=== PATIENT | female | born 1965 | race Caucasian/White ===

== ENCOUNTER 2023-09-28 23:46 | Day surgery (SDC) | payer BC, SELFPAY ==
[2023-09-28] VITALS (10 sets, daily range): BP systolic 137–191; BP diastolic 79–102
--- NOTE | 2023-09-28 15:45 | ED.GENMED ---
History of Present Illness
General
Chief Complaint: Chest Pain
Time Seen by Provider: 09/28/23 15:40
Travel History
Have you had any contact with someone who has COVID-19?: No
Do you have any symptoms of coronavirus? Fever > 100 degrees, chills, cough, shortness of breath, sore throat, loss of taste or smell, muscle aches, or headache?: No
History of Present Illness
History of Present Illness:
58-year-old female with history of hypothyroidism presents the emergency department complaining of severe onset acute epigastric and chest pain. States that she is never experienced pain as severe as this, radiates through to the thoracic back.
Pain is constant, noncolicky. Is been ongoing for the past 15 to 30 minutes. Denies any p.o. intake today. No fever, chills, sweats, vomiting, or diarrhea. No history of intra-abdominal surgery other than .
Past History
Past History
ED Past Medical History: Hypothyroidism and Other (Seasonal allergies)
ED Past Surgical History: Negative Cardiac
Social History
Tobacco: Non-smoker
Alcohol: Occasional
Drug: None
Personal:
Living: with family
Employment: Employed
Family History
Family History: Other (Noncontributory)
Review of Systems
Review of Systems
Allergies reviewed?: Yes
All Other Systems: ROS reviewed and negative except as documented in HPI and ROS
Phy Exam
Physical Exam
Physical Exam:
GEN: Screaming, writhing in pain
Eyes: PERRLA, EOMs intact, no scleral icterus
HENT: NCAT, oral mucosa moist
Lungs: CTAB, no wheezes, rales, rhonchi, normal chest wall excursion
Cardiac: Mildly tachycardic, regular
Abdomen: Soft, minimal reproducible epigastric tenderness, no rigidity or peritoneal signs
Neuro: AO x 3
MSK: No gross deformity or ecchymosis. No edema. No digital clubbing
Skin: No rashes, petechiae. Normal color, no pallor or jaundice.
Psych: Anxious, difficult to redirect
Scores
Heart Score for Chest Pain Patients
STEMI patient?: Not applicable
Course
Orders/Labs/Results
Orders:
Orders
09/28/23 15:27
Electrocardiogram (*1) Urgent
Reason for Study: Chest Pain
EKG- Treatment ONCE
09/28/23 15:34
Complete Blood Count/With Diff Urgent
Comprehensive Metabolic Panel Urgent
Lipase Urgent
Comment: ADD ON'
Troponin I Urgent
09/28/23 15:44
CR Chest Portable - 1 View Urgent
Comment:
Reason For Exam: chst pain
Reason Study Needs to be Portable: Other
09/28/23 15:46
Fentanyl Citrate/Pf [Sublimaze] 75 mcg IV NOW STA
09/28/23 15:47
D-Dimer Urgent
09/28/23 16:12
Add On- LAB Urgent
Tests Added?: lipase
09/28/23 16:32
HYDROmorphone [Dilaudid] 0.25 mg IV NOW STA
09/28/23 17:02
CT Abd/Pel (IV only)-DH only Urgent
Comment:
Reason For Exam: epigastric pain
09/28/23 19:07
Electrocardiogram (*1) Urgent
Reason for Study: Chest Pain
EKG- Treatment ONCE
Fentanyl Citrate/Pf [Sublimaze] 50 mcg IV NOW STA
09/28/23 19:21
Troponin I Urgent
09/28/23 20:53
US Abdomen Limited Urgent
Comment: RUQ/biliary only
Reason For Exam: biliary colic
09/28/23 22:32
0.9% Sodium Chloride 1000 ml [Nss] 1,000 ml IV BOLUS
Piperacillin/Tazo 3.375 Gram [Zosyn] 3.375 gram in 50 ml IV NOW
Abnormal Lab Results
09/28/23
15:34
BUN 18 H mg/dl
(7-17)
AST 50 H U/L
(14-36)
Alkaline Phosphatase 142 H U/L
(38-126)
09/28/23 15:34
09/28/23 15:34
Vital Signs
Initial and Last Documented VS:
Initial Vital Signs
Temp Pulse Resp BP Pulse Ox
97.4 F 79 16 191/96 100
09/28/23 15:36 09/28/23 15:36 09/28/23 15:36 09/28/23 15:36 09/28/23 15:36
Last Documented Vital Signs
Temp Pulse Resp BP Pulse Ox
97.4 F 75 14 154/87 95
09/28/23 15:36 09/28/23 22:16 09/28/23 22:16 09/28/23 22:16 09/28/23 22:16
MDM/Problems Addressed
MDM/Problems Addressed:
On arrival the patient's dramatic presentation was concerning for acute coronary syndrome, pulmonary embolism, or aortic emergency. She was noted to be hypertensive however with an unremarkable neurologic exam, and symmetric radial pulses. She did
not display significant abdominal tenderness. Initial workup reveals negative troponin, normal EKG, and negative D-dimer. These labs lowered concern for potential aortic emergency as well as pulmonary embolism. She then underwent a CT scan and
repeat troponin which was again negative, repeat EKG also negative. CT revealed suggestion of acute cholecystitis. The patient was then reassessed and has similar epigastric tenderness but a negative clinical Bañuelos sign. Follow-up ultrasound
highly suspicious for acute cholecystitis. Will start IV antibiotics and admit to the general surgery service for morning evaluation
*Critical Care Note
Total Time (30-74mins, 75-104mins- exclusive of procedures): Not Applicable
ED Attending Note
-
Portions of this chart may have been created with voice recognition software.� Occasional wrong word or��sound alike� substitutions may have occurred due to the inherent limitations of voice recognition software.
Discharge Plan
Departure
Patient Disposition: Admit
Date of Disposition: 09/28/23
Time of Disposition: 22:35
Admit to: Med/Surg
Presentation/result/management discussed w/ accepting MD/DO: Hospitalist
Discharge Problem:
Acute cholecystitis
Prescriptions:
No Action
levothyroxine 100 mcg Tablet
100 mcg PO DAILY
ibuprofen 200 mg Tablet
200 mg PO ONCE PRN (Reason: mild pain)
Vtama 1 % Cream
1 applic TOPICAL HSPRN PRN (Reason: apply to B/L feet and hands)
Glucosamine Chondroitin
2 tab PO HS
Referrals:
Rock Vinson DO [Family Provider] -
Interventions
Interventions:
*Risk Screen - Suicide Last Done: 09/28/23 15:36
*General Assessment Last Done: 09/28/23 15:36
*Neglect/Abuse Screening Last Done: 09/28/23 15:36
*ED COVID-19 Vaccine History Last Done: 09/28/23 15:36
ED- Cardiac Assessment Last Done: 09/28/23 15:43
[2023-09-28 15:48] LABS: % Basophils 0.5 % (0-2); % Eosinophils 3.8 % (0-6); % Immature Granulocytes 0.5 % (0-0.5); % Monocytes 6.3 % (1.7-9.3); % Neutrophils 52.9 % (42.2-75.2); Absolute Eosinophils 0.3 10^3/uL (0-0.7); Absolute Lymphocytes 3.1 10^3/uL (1.2-3.4); Absolute Monocytes 0.6 10^3/uL (0.1-0.6); Absolute Neutrophils 4.6 10^3/uL (1.4-6.5); Hematocrit 41.8 % (37.0-47.0); Hemoglobin 14.6 g/dL (12.0-16.0); Mean Corp Hgb Conc. 34.9 g/dL (33.0-37.0); Mean Corpuscular Hgb 29.3 pg (27.0-31.0); Mean Corpuscular Volume 83.8 fL (81.0-99.0); Mean Platelet Volume 9.9 fL (7.4-10.4); Nucleated Red Blood Cells % 0 %; Platelet Count 315 10^3/uL (130-400); Red Blood Cell Count 4.99 10^6/uL (4.20-5.40); Red Cell Dist. Width 13.4 % (11.5-14.5); White Blood Cell Count 8.7 10^3/uL (4.8-10.8)
[2023-09-28] MEDS: SUBLIMAZE 75 MCG IV (15:49)
[2023-09-28 16:11] LABS: ALT (SGPT) 28 U/L (0-35); AST (SGOT) 50 U/L (14-36); Albumin 4.2 g/dl (3.5-5.0); Alkaline Phosphatase 142 U/L (38-126); Blood Urea Nitrogen 18 mg/dl (7-17); Calcium 9.4 mg/dl (8.4-10.2); Carbon Dioxide 26 mmol/L (22-30); Chloride 103 mmol/L (98-107); Glucose 97 mg/dl (70-99); Potassium 4.3 mmol/L (3.5-5.1); Sodium 139 mmol/L (135-145); Total Bilirubin 0.8 mg/dl (0.2-1.3); Total Protein 7.5 g/dl (6.3-8.2); Troponin I < 0.012 ng/ml; eGFR > 60.00
[2023-09-28 16:13] LABS: D-Dimer < 0.27 ug/mlFEU (0.00-0.50)
[2023-09-28] MEDS: DILAUDID 0.25 MG IV (16:37)
[2023-09-28 16:52] LABS: Lipase 173 U/L (23-300)
[2023-09-28] MEDS: SUBLIMAZE 50 MCG IV (19:19)
[2023-09-28 19:57] LABS: Troponin I < 0.012 ng/ml
[2023-09-28] MEDS: ZOSYN 50 IV (22:54)
[2023-09-28] MEDS: NSS 1000 IV (22:55)
[2023-09-29] VITALS (11 sets, daily range): BP systolic 103–155; BP diastolic 59–91; BMI 29.4
--- NOTE | 2023-09-29 00:01 | HPS.HSE ---
Addendum entered and electronically signed by Bruce Ma MD 09/29/23 07:49:
Patient seen and examined independently.
Patient is a 58 yo F with a PMH of hypothyroidism and s/p x 3 who presented to yesterday afternoon with a severe episode of epigastric abdominal pain radiating across to her bilateral upper abdomen and into her back. Ms. Lebron states
that she was doing well prior to this episode and denies any prior attacks or issues with abdominal pain. No clear association with fatty food intake. No nausea or vomiting. No fevers or chills. She denies jaundice, pale stools, or tea colored
urine. She reports a history more consistent with constipation over the past few days. This a.m. her symptoms have resolved and she is doing well.
Gen: NAD
Abd: soft, NT/ND, negative Bañuelos's sign, non-peritoneal, prior Pfannenstiel incisions well-healed
Labs and imaging were reviewed
Patient is a 58 yo F p/w biliary colic
The natural history and pathophysiology of biliary and stone disease was discussed. Anatomy was reviewed utilizing pictorial images. Options for management including discharge and medical management with a low-fat diet with eventual outpatient
cholecystectomy versus cholecystectomy during this admission were considered and discussed. The pros and cons of both approaches was discussed. Recommend cholecystectomy, patient agrees to proceed.
Plan for a laparoscopic cholecystectomy with possible cholangiogram. The procedure itself, as well as the risks, benefits, and alternatives was discussed. Specifically, we discussed the risks of bleeding, infection, injury to surrounding
structures (bowel, bile ducts), CBD injury, need for open procedure. Typical postprocedural recovery including pain management and the 10 to 20% risk of fluctuations in GI function was discussed. All questions answered. Consent signed.
-- Laparoscopic cholecystectomy possible IOC
-- NPO, IVF
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
-- Pain control: Tylenol and IV Dilaudid PRN
Original Note:
Family Physician
-
Family Physician: Rock Vinson
Chief Complaint
-
abd pain
History of Present Illness
58-year-old female with history of hypothyroidism presents the emergency department complaining of severe onset acute epigastric and chest pain.� States that she is never experienced pain as severe as this, radiates through to the thoracic back.�
Pain happened suddenly. No relation to eating etc. Last meal was yesterday afternoon. Pain is constant, noncolicky.� Denies any p.o. intake today.� No fever, chills, sweats, vomiting, or diarrhea.� No history of intra-abdominal surgery other than
. Based on severity of symptoms and HTN pt was first worked up for cardiac reasons but all was ruled out. It was decided then to send for CT abd.
Ct Scan abd: Within the dependent portion of the gallbladder, there is a gallstone with transverse dimension of 17 mm. Slightly more posteriorly and superiorly, there is a second gallstone, with diameter of 10 mm. There is subtle stranding of the
fat adjacent to the gallbladder, and findings are suggestive of mild gallbladder wall thickening and/or pericholecystic edema. In the correct clinical setting, these findings suggest the possibility of acute cholecystitis.
OF note, pt does describe some changes in bowels over last couple months. Feels like she has to strain more and BMs have been more 'mushy' vs formed. BM every other day. Last colonoscopy normal.
Medical History
Past Medical History
Past Medical History: Reports Hypothyroidism
Past Surgical History: Reports (x3)
Social History
Tobacco: Non-smoker
Alcohol: Occasional
Drug: None
Personal:
Living: With Family
Employment: Employed
Family History
Family History: Not pertinent
Allergies / Home Medications
Allergies reflects when Allergies were last updated in [facility].
Home Medications with original date entered in [facility]
Allergy/Medication List:
Allergies
Allergy/AdvReac Type Severity Reaction Status Date / Time
latex [Latex] Allergy Itching Verified 05/27/19 21:08
Home Medications
Glucosamine Chondroitin 2 tab PO HS 09/28/23
ibuprofen 200 mg tablet 200 mg PO ONCE PRN mild pain 09/28/23
levothyroxine 100 mcg tablet 100 mcg PO DAILY 09/28/23
tapinarof 1 % topical cream (Vtama) 1 applic topical HSPRN PRN apply to B/L feet and hands 09/28/23
Review of Systems
-
History Source: Patient
A 12 point ROS was completed and negative except as noted: Yes
Constitutional: Reports No Symptoms
EENT: Reports No Symptoms
Respiratory: Reports No Symptoms
Cardiac: Reports Chest Pain
Abdomen/GI: Reports Abdominal Pain and Other (changes in bowel constancy--more mushy vs formed )over last few months))
: Reports No Symptoms
Musculoskeletal: Reports No Symptoms
Skin: Reports No Symptoms
Neurological: Reports No Symptoms
Endocrine: Reports No Symptoms
Hematologic/Lymphatic: Reports No Symptoms
Physical Exam
Vital Signs
Vital Signs
Temp Pulse Resp BP Pulse Ox
97.4 F 75 14 154/87 95
09/28/23 15:36 09/28/23 22:16 09/28/23 22:16 09/28/23 22:16 09/28/23 22:16
Physical Exam
General: Well Developed, Well Nourished, No Apparent Distress and Comfortable (pain now 2/10 vs 200/10)
HEENT: NormoCephalic, Anicteric and Moist mucous membranes
Respiratory: Clear
Cardiac: Regular Rhythm
Breast: Deferred by me
GI: Soft, Non Tender, Non Distended and Normal Bowel Sounds
Rectal: Deferred by Provider
Genito-urinary: Deferred by me
Skin: Warm
Neuro: Awake, Oriented and AO x 3
Hematologic/Lymphatic: No Lymphadenopathy
Psych: Calm
Laboratory Results
-
09/28/23 15:34
09/28/23 15:34
Laboratory Results
Total Bilirubin 0.8 mg/dl (0.2-1.3) 09/28/23 15:34
AST 50 U/L (14-36) H 09/28/23 15:34
ALT 28 U/L (0-35) 09/28/23 15:34
Alkaline Phosphatase 142 U/L (38-126) H 09/28/23 15:34
Troponin I < 0.012 ng/ml 09/28/23 19:21
Lipase 173 U/L (23-300) 09/28/23 15:34
Data Reviewed
-
CT Scan: Discussed with Physician
Ultrasound: Discussed with Physician
Lab Data: Labs Reviewed by me
Impression/Plan
-
IMPRESSION:
acute cholecystitis
PLAN:
Admit to service of Dr Ma
med/surg obs
#acute cholecystitis
-NPO x meds after midnight
-Pt wants to eat before NPO (hasn't eaten since yesterday)--> sandwich given
-IVF Nss @100
-Pain control: dilaudid , tylenol or toradol
-Cont zosyn q6
-zofran prn
#hypothyroid
-cont levothyroxine
DVT proph: scd for now given OR in am
full code
[2023-09-29] MEDS: NSS 1000 IV ×2 (00:41→09:58)
[2023-09-29] MEDS: MELATONIN 10 MG PO ×2 (00:42→21:42)
--- NOTE | 2023-09-29 01:27 | PTCARENOTE ---
Pt. coming from ED to [facility] around 0030, able to walk to room bed with steady gait. Pt. A&Ox3, in NAD, even and unlabored breathing on RA, and VSS - hypertensive but better than previous readings. Denies pain at present, stating she'd like to
sleep. Pt. oriented to room and unit policies, bed locked and in lowest position, side rails in place, call light within reach, and questions answered at time of assessment. Will continue to monitor.
[2023-09-29] MEDS: ZOSYN 50 IV ×4 (04:29→21:42)
--- NOTE | 2023-09-29 07:49 | W.SUR.PREOP ---
Pre-Operative Surgical Note
-
I have examined this patient prior to the performance of the scheduled procedure.
The patient's condition is unchanged from the time of the current History and
Physical and the patient is able to undergo the scheduled procedure.
[2023-09-29] MEDS: SYNTHROID 100 MCG PO (07:53)
[2023-09-29] MEDS: COLACE 100 MG PO ×2 (08:00→20:59)
--- NOTE | 2023-09-29 10:35 | CM ---
Reviewed the chart notes and spoke with the patient at the bedside. Patient expects to go to the OR today for a lap amy. The patient resides with her spouse in a two story home with two steps to enter. The patient reports no DME/VN/SNF in the
past. The patient confirmed here pharmacy of choice is the [facility]. CM continues to be available to patient/family and is monitoring medical plan for needs at discharge.
Plan: Discharge to home when medically stable. No needs anticipated.
[2023-09-29 10:38] LABS: % Basophils 0.6 % (0-2); % Immature Granulocytes 0.3 % (0-0.5); % Lymphocytes 31.3 % (20.5-51.1); % Monocytes 7.4 % (1.7-9.3); % Neutrophils 56.4 % (42.2-75.2); Absolute Eosinophils 0.1 10^3/uL (0-0.7); Absolute Lymphocytes 1.1 10^3/uL (1.2-3.4); Absolute Monocytes 0.3 10^3/uL (0.1-0.6); Hematocrit 38.2 % (37.0-47.0); Hemoglobin 13.1 g/dL (12.0-16.0); Mean Corp Hgb Conc. 34.3 g/dL (33.0-37.0); Mean Corpuscular Hgb 29.2 pg (27.0-31.0); Mean Corpuscular Volume 85.3 fL (81.0-99.0); Mean Platelet Volume 10.1 fL (7.4-10.4); Nucleated Red Blood Cells % 0 %; Platelet Count 237 10^3/uL (130-400); Red Blood Cell Count 4.48 10^6/uL (4.20-5.40); Red Cell Dist. Width 13.2 % (11.5-14.5); White Blood Cell Count 3.5 10^3/uL (4.8-10.8)
[2023-09-29 11:11] LABS: ALT (SGPT) 750 U/L (0-35); AST (SGOT) 740 U/L (14-36); Albumin 3.4 g/dl (3.5-5.0); Alkaline Phosphatase 213 U/L (38-126); Blood Urea Nitrogen 9 mg/dl (7-17); Calcium 7.8 mg/dl (8.4-10.2); Carbon Dioxide 29 mmol/L (22-30); Chloride 108 mmol/L (98-107); Estimated Creatinine Clearance 97 ml/min; Glucose 89 mg/dl (70-99); Potassium 4.2 mmol/L (3.5-5.1); Sodium 138 mmol/L (135-145); Total Bilirubin 1.2 mg/dl (0.2-1.3); Total Protein 6.3 g/dl (6.3-8.2); eGFR > 60.00
--- NOTE | 2023-09-29 14:56 | W.IMMPOSTOP ---
Addendum entered and electronically signed by Bruce Ma MD 09/29/23 15:06:
[facility]# [id number]
Original Note:
Surgical Immed Post Op Note
-
Primary Surgeon: Francesca
Assisting Surgeon: None
Pre-op Diagnosis: Biliary colic
Post-op Diagnosis: Biliary colic, likely passed choledocholithiasis
Procedure Performed: Laparoscopic cholecystectomy with IOC
Anesthesia Type: General
Specimen / Cultures:
1. Gallbladder
Estimated Blood Loss: 7 cc
Complications: None
Operative Findings:
1. Mild wall thickness, pressurized cystic duct, critical view of safety
2. IOC without filling defects
[2023-09-29] MEDS: ANCEF 10 IV (15:21)
[2023-09-29] MEDS: DILAUDID 0.25 MG IV ×2 (15:39→15:46)
--- NOTE | 2023-09-29 16:25 | PTCARENOTE ---
Received patient from PACU around 1610 via bed in stable condition. VS stable. Pain controlled. 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
[2023-09-29] MEDS: TYLENOL 650 MG PO (20:59)
[2023-09-29] MEDS: MYLICON 80 MG PO (21:41)
[2023-09-29] MEDS: TORADOL 10 MG IV (22:38)
[2023-09-30] MEDS: TYLENOL 650 MG PO ×3 (02:40→21:40)
[2023-09-30] MEDS: NSS 1000 IV ×2 (02:40→12:41)
[2023-09-30 03:40] VITALS: BP 121/63
[2023-09-30] MEDS: ZOSYN 50 IV ×4 (03:55→21:36)
--- NOTE | 2023-09-30 05:08 | DOWNTIME ---
There was a [employer] Client Scanning Clerk Downtime on 09/30/2023 from 0111 to 09/30/2023 at 0405. Downtime documentation of patient's care, including medication administrations, has been reconciled in the electronic record per guidelines. Refer to the
patient's paper chart under the miscellaneous tab to see printed paper medication records and downtime forms.
[2023-09-30 05:56] LABS: Hematocrit 38.4 % (37.0-47.0); Hemoglobin 13.1 g/dL (12.0-16.0); Mean Corp Hgb Conc. 34.1 g/dL (33.0-37.0); Mean Corpuscular Hgb 29.2 pg (27.0-31.0); Mean Corpuscular Volume 85.7 fL (81.0-99.0); Mean Platelet Volume 10.6 fL (7.4-10.4); Platelet Count 262 10^3/uL (130-400); Red Blood Cell Count 4.48 10^6/uL (4.20-5.40); Red Cell Dist. Width 13.4 % (11.5-14.5); White Blood Cell Count 8.1 10^3/uL (4.8-10.8)
[2023-09-30 06:43] LABS: Albumin 3.7 g/dl (3.5-5.0); Alkaline Phosphatase 222 U/L (38-126); Blood Urea Nitrogen 9 mg/dl (7-17); Calcium 8.3 mg/dl (8.4-10.2); Carbon Dioxide 26 mmol/L (22-30); Chloride 107 mmol/L (98-107); Estimated Creatinine Clearance 97 ml/min; Glucose 150 mg/dl (70-99); Potassium 4.2 mmol/L (3.5-5.1); Sodium 137 mmol/L (135-145); Total Bilirubin 0.9 mg/dl (0.2-1.3); Total Protein 6.7 g/dl (6.3-8.2); eGFR > 60.00
[2023-09-30 06:59] LABS: ALT (SGPT) 919 U/L (0-35); AST (SGOT) 695 U/L (14-36)
[2023-09-30 07:44] VITALS: BP 128/72
[2023-09-30] MEDS: TORADOL 10 MG IV ×2 (08:29→15:16)
[2023-09-30] MEDS: COLACE 100 MG PO (08:30)
[2023-09-30] MEDS: SYNTHROID 100 MCG PO (08:30)
--- NOTE | 2023-09-30 08:38 | W.PN.GS2 ---
Today's Communication / Plan
-
Monitor for improvement in pain
Possible DC home later today
Assessment / Plan
-
58F POD1 s/p lap amy with negative IOC for choledocholithiasis/biliary colic
AFVSS, ambulating,m voiding, james PO
Recurrent RUQ pain this am
No leukocytosis, Tbili improved, AST improved, ALT/ALP slightly increased
Plan:
If not for the new onset pain, would be ready for DC
Reassured the lab findings are not suspicious
Would monitor her for today to ensure pain improves, if not, recheck LFTs in the am
If pain improved, DC home later today
Subjective Data
-
Date of Service: September 30, 2023
AFVSS, did well o/n, james PO, ambulating, voiding, this am has recurrent RUQ pain that feels similar to admission
Objective Data
-
Intake and Output
09/29/23 09/30/23 10/01/23
06:59 06:59 06:59
Intake Total 240 / 240 5080 / 5080
Output Total 700 / 700
Balance 240 / 240 4380 / 4380
Intake:
Oral fluids 240 / 240 2880 / 2880
IV fluids (Total) 2000 / 1999
Norm 100 / 100
IV piggybacks 200 / 200
Output:
Urine, Voided 700 / 700
Other:
Number of approximated LARGE 2
amounts of urine
How many times incontinent 2
MODERATE amount urine
Vital Signs
Temp Pulse Resp BP Pulse Ox
98.5 F 69 19 128/72 98
09/30/23 07:44 09/30/23 07:44 09/30/23 07:44 09/30/23 07:44 09/30/23 07:44
Lab Results
09/30/23 04:52
09/30/23 04:52
Calcium 8.3 mg/dl (8.4-10.2) L 09/30/23 04:52
Total Bilirubin 0.9 mg/dl (0.2-1.3) 09/30/23 04:52
AST 695 U/L (14-36) H* 09/30/23 04:52
ALT 919 U/L (0-35) H* 09/30/23 04:52
Alkaline Phosphatase 222 U/L (38-126) H 09/30/23 04:52
Total Protein 6.7 g/dl (6.3-8.2) 09/30/23 04:52
Albumin 3.7 g/dl (3.5-5.0) 09/30/23 04:52
Physical Exam
-
Gen: NAd
bd: soft, incisions cdi, mild ttp to RUQ
[2023-09-30 11:09] VITALS: BP 145/68
--- NOTE | 2023-09-30 14:34 | CM ---
Reviewed the chart notes. Patient is POD#1 s/p lap amy. CM continues to be available to patient/family and is monitoring medical plan for needs at discharge.
Plan: Discharge to home when medically stable.
--- NOTE | 2023-09-30 14:48 | W.PN.UPDATE ---
Update Note
Progress Note Update
RUQ pain persists. She is afraid to eat lunch for fear of exacerbating the pain. VSS, exam is stable. Encouraged to try eating. Plan for additional obs tonight and recheck labs in the am.
[2023-09-30 15:32] VITALS: BP 126/75
[2023-09-30] MEDS: LOVENOX 40 MG SC (17:29)
[2023-09-30] MEDS: MYLICON 80 MG PO (17:29)
[2023-09-30] MEDS: MIRALAX 17 GRAMS PO (20:22)
[2023-09-30] MEDS: ROXICODONE 5 MG PO (20:22)
--- NOTE | 2023-09-30 20:30 | PTCARENOTE ---
Pt c/o pain to gen abd, medicated w PRN pain med. Left dinner tray in room in case pt would like to eat later. Pt tearful, stating she's frustrated and just wants to go home but RUQ pain is too bad. Will reassess effectiveness of PRN pain med.
--- NOTE | 2023-09-30 22:53 | PTCARENOTE ---
Pt reported pain subsided a lot, however, slowly after taking PRN pain meds. Pt was able to consume 100% of her dinner entree. Assessment ongoing.
[2023-09-30 23:10] VITALS: BP 117/65
[2023-09-30] MEDS: MELATONIN 10 MG PO (23:15)
[2023-09-30] MEDS: NSS IV (23:31)
[2023-10-01] MEDS: TORADOL 10 MG IV ×2 (02:30→08:54)
[2023-10-01] MEDS: ZOSYN 50 IV ×2 (03:57→09:04)
[2023-10-01] MEDS: SYNTHROID 100 MCG PO (06:15)
[2023-10-01 07:35] VITALS: BP 160/87
[2023-10-01] MEDS: FLUSH (NSS) 2 FLUSH IV (08:57)
[2023-10-01 09:26] LABS: Hematocrit 34.8 % (37.0-47.0); Hemoglobin 12.1 g/dL (12.0-16.0); Mean Corp Hgb Conc. 34.8 g/dL (33.0-37.0); Mean Corpuscular Hgb 29.4 pg (27.0-31.0); Mean Corpuscular Volume 84.7 fL (81.0-99.0); Mean Platelet Volume 10.4 fL (7.4-10.4); Platelet Count 236 10^3/uL (130-400); Red Blood Cell Count 4.11 10^6/uL (4.20-5.40); Red Cell Dist. Width 13.9 % (11.5-14.5); White Blood Cell Count 5.9 10^3/uL (4.8-10.8)
[2023-10-01 10:51] LABS: AST (SGOT) 345 U/L (14-36); Albumin 3.4 g/dl (3.5-5.0); Alkaline Phosphatase 186 U/L (38-126); Blood Urea Nitrogen 12 mg/dl (7-17); Calcium 8.6 mg/dl (8.4-10.2); Carbon Dioxide 29 mmol/L (22-30); Chloride 105 mmol/L (98-107); Estimated Creatinine Clearance 83 ml/min; Glucose 101 mg/dl (70-99); Potassium 4.1 mmol/L (3.5-5.1); Sodium 138 mmol/L (135-145); Total Bilirubin 0.7 mg/dl (0.2-1.3); Total Protein 6.2 g/dl (6.3-8.2); eGFR > 60.00
[2023-10-01 11:03] LABS: ALT (SGPT) 748 U/L (0-35)
--- NOTE | 2023-10-01 11:03 | W.PN.GS2 ---
Today's Communication / Plan
-
`
Assessment / Plan
-
58F POD2 s/p lap amy with negative IOC for choledocholithiasis/biliary colic
AFVSS
LFTs normalizing
Plan: d/c home
Subjective Data
-
Date of Service: October 01, 2023
pt seen and examined
right sided and epigastric incisional pain
james eggs for breakfast and felt well
no nausea
Objective Data
-
Intake and Output
09/30/23 10/01/23 10/02/23
06:59 06:59 06:59
Intake Total 5080 / 5080 3530 / 3530
Output Total 700 / 700
Balance 4380 / 4380 3530 / 3530
Intake:
Oral fluids 2880 / 2880 1620 / 1620
IV fluids (Total) 2000 / 1999 1710 / 1710
Norm 100 / 100
IV piggybacks 200 / 200 200 / 200
Output:
Urine, Voided 700 / 700
Other:
Number of approximated MODERATE 4
amounts of urine
Number of approximated LARGE 2 1
amounts of urine
How many times incontinent 2
MODERATE amount urine
Vital Signs
Temp Pulse Resp BP Pulse Ox
97.7 F 57 16 160/87 96
10/01/23 07:35 10/01/23 07:35 10/01/23 07:35 10/01/23 07:35 10/01/23 07:35
Lab Results
10/01/23 09:09
10/01/23 09:09
Calcium 8.6 mg/dl (8.4-10.2) 10/01/23 09:09
Total Bilirubin 0.7 mg/dl (0.2-1.3) 10/01/23 09:09
AST 345 U/L (14-36) H 10/01/23 09:09
ALT 748 U/L (0-35) H* 10/01/23 09:09
Alkaline Phosphatase 186 U/L (38-126) H 10/01/23 09:09
Total Protein 6.2 g/dl (6.3-8.2) L 10/01/23 09:09
Albumin 3.4 g/dl (3.5-5.0) L 10/01/23 09:09
Physical Exam
-
NAD AAO x 3
ABD: soft, ND, mild incisional tenderness, incisions with glue dressing
--- NOTE | 2023-10-01 11:12 | W.DS.TRANS ---
DC Summary - Document Restorer
-
Discharge Instructions:
Discharge Diagnosis/Procedures S/p laparoscopic cholecystectomy
Diet Regular
Additional Diets If issues with bloating or diarrhea follow a low
-fat diet
Activity No strenuous activity
Additional Activity No heavy lifting (>20 lbs) or strenuous
activities for 2 weeks postoperatively
Driving Restrictions No driving if too sore or taking narcotics
Bathing Restrictions OK to Shower
Wound Care Keep incisions clean and dry. Glue will flake
off in 2 to 3 weeks. Stitches will dissolve.
Instructions:
Stand-Alone Forms:
Changes to Home Medications: No
Discharge Medications:
DC Medications w/original date entered in [facility]
Glucosamine Chondroitin 2 tab PO HS Supplement 09/28/23
ibuprofen 200 mg tablet 200 mg PO ONCE PRN mild pain 09/28/23
levothyroxine 100 mcg tablet 100 mcg PO DAILY Thyroid 09/28/23
tapinarof 1 % topical cream (Vtama) 1 applic topical HSPRN PRN apply to B/L feet and hands 09/28/23
melatonin 10 mg tablet 10 mg PO HS PRN sleep 09/29/23
tramadol 50 mg tablet 50 mg PO Q6HPRN PRN moderate to severe pain #10 tabs 10/01/23
Home Medication Changes
Pending Results: No
--- NOTE | 2023-10-01 11:28 | CM ---
Pt is post surgical recovery patient .
Spoke with patient she said she was ready for discharge.
Her Neal will drive her home today ,
Offered Vn she declined need.
PLAN Home no needs
== END 2023-10-01 12:48 | disposition home or self-care (01) ==
LOC: SDS 23:46
PROVIDERS: Emergency Medicine; Nurse Practitioner Family; Physician Assistant; Surgery; ATTENDING PHYSICIAN Surgery; EMERGENCY PHYSICIAN Emergency Medicine; FAMILY PHYSICIAN Family Medicine
DX: K80.10 Calculus of gallbladder with chronic cholecystitis without obstruction (principal); K80.50 Calculus of bile duct without cholangitis or cholecystitis without obstruction; Z87.19 Personal history of other diseases of the digestive system
CPT/HCPCS: 47563; 88304; 71045; 74177; 74300; 76000; 76705; 80053; 83690; 84484; 85025; 85027; 85379; 93005; 96365; 96375; 96376; 99285; G0378; Q9967

== ENCOUNTER → 2023-11-12 09:26 | Outpatient (REF) | payer BC, SELFPAY ==
[2023-11-12 10:36] LABS: Urine Albumin Negative (Neg - Trace); Urine Bilirubin Negative (Negative); Urine Character Clear (Clear); Urine Color Yellow; Urine Glucose Negative (Negative); Urine Ketone Negative (Negative); Urine Leukocyte Negative (Negative); Urine Nitrite Negative (Negative); Urine Occult Blood Negative (Negative); Urine Urobilinogen Negative (Neg - 1+)
[2023-11-12 10:50] LABS: % Basophils 0.6 % (0-2); % Eosinophils 3.6 % (0-6); % Immature Granulocytes 0.2 % (0-0.5); % Lymphocytes 33.3 % (20.5-51.1); % Monocytes 6.5 % (1.7-9.3); % Neutrophils 55.8 % (42.2-75.2); Absolute Eosinophils 0.2 10^3/uL (0-0.7); Absolute Lymphocytes 1.6 10^3/uL (1.2-3.4); Absolute Monocytes 0.3 10^3/uL (0.1-0.6); Absolute Neutrophils 2.6 10^3/uL (1.4-6.5); Hemoglobin 15.2 g/dL (12.0-16.0); Mean Corp Hgb Conc. 33.8 g/dL (33.0-37.0); Mean Corpuscular Volume 85.7 fL (81.0-99.0); Nucleated Red Blood Cells % 0 %; Platelet Count 295 10^3/uL (130-400); Red Blood Cell Count 5.25 10^6/uL (4.20-5.40); Red Cell Dist. Width 13.2 % (11.5-14.5); White Blood Cell Count 4.7 10^3/uL (4.8-10.8)
[2023-11-12 11:53] LABS: ALT (SGPT) 27 U/L (0-35); AST (SGOT) 27 U/L (14-36); Albumin 4.7 g/dl (3.5-5.0); Alkaline Phosphatase 131 U/L (38-126); Blood Urea Nitrogen 12 mg/dl (7-17); Calcium 9.5 mg/dl (8.4-10.2); Carbon Dioxide 29 mmol/L (22-30); Chloride 100 mmol/L (98-107); Glucose 89 mg/dl (70-99); HDL Cholesterol 72 mg/dl; Potassium 4.4 mmol/L (3.5-5.1); Sodium 138 mmol/L (135-145); Total Bilirubin 0.8 mg/dl (0.2-1.3); Total Cholesterol 235 mg/dl (50-199); Total Protein 8.1 g/dl (6.3-8.2); eGFR > 60.00
[2023-11-12 11:59] LABS: LDL Cholesterol, Calculated 142 mg/dl; Triglyceride 109 mg/dl (10-149); Very Low Density Lipoprotein 21 mg/dl (0-30)
[2023-11-12 12:23] LABS: TSH 0.54 uIU/ml (0.47-4.68)
== END ==
LOC: REG 09:26
PROVIDERS: ATTENDING PHYSICIAN Family Medicine
DX: N39.0 Urinary tract infection, site not specified (principal); I10 Essential (primary) hypertension; E78.5 Hyperlipidemia, unspecified; R53.83 Other fatigue; E03.9 Hypothyroidism, unspecified
CPT/HCPCS: 36415; 80053; 80061; 81003; 84443; 85025

== ENCOUNTER → 2023-11-27 11:30 | Outpatient (REF) | payer BC, SELFPAY ==
[2023-11-27 12:21] LABS: % Basophils 0.6 % (0-2); % Eosinophils 2.4 % (0-6); % Immature Granulocytes 0.2 % (0-0.5); % Monocytes 6.6 % (1.7-9.3); % Neutrophils 55.2 % (42.2-75.2); Absolute Eosinophils 0.1 10^3/uL (0-0.7); Absolute Lymphocytes 1.6 10^3/uL (1.2-3.4); Absolute Monocytes 0.3 10^3/uL (0.1-0.6); Absolute Neutrophils 2.6 10^3/uL (1.4-6.5); Hematocrit 44.6 % (37.0-47.0); Hemoglobin 15.1 g/dL (12.0-16.0); Mean Corp Hgb Conc. 33.9 g/dL (33.0-37.0); Mean Corpuscular Hgb 28.9 pg (27.0-31.0); Mean Corpuscular Volume 85.4 fL (81.0-99.0); Mean Platelet Volume 10.1 fL (7.4-10.4); Nucleated Red Blood Cells % 0 %; Platelet Count 300 10^3/uL (130-400); Red Blood Cell Count 5.22 10^6/uL (4.20-5.40); Red Cell Dist. Width 12.9 % (11.5-14.5); White Blood Cell Count 4.7 10^3/uL (4.8-10.8)
[2023-11-27 12:41] LABS: ALT (SGPT) 20 U/L (0-35); AST (SGOT) 25 U/L (14-36); Albumin 4.7 g/dl (3.5-5.0); Alkaline Phosphatase 103 U/L (38-126); Blood Urea Nitrogen 12 mg/dl (7-17); Calcium 9.4 mg/dl (8.4-10.2); Carbon Dioxide 28 mmol/L (22-30); Chloride 102 mmol/L (98-107); Direct Bilirubin 0.3 mg/dl (0.0-0.4); Glucose 90 mg/dl (70-99); HDL Cholesterol 74 mg/dl; LDL Cholesterol, Calculated 86 mg/dl; Sodium 136 mmol/L (135-145); Total Bilirubin 0.7 mg/dl (0.2-1.3); Total Cholesterol 175 mg/dl (50-199); Total Protein 8.2 g/dl (6.3-8.2); Triglyceride 77 mg/dl (10-149); Very Low Density Lipoprotein 15 mg/dl (0-30); eGFR > 60.00
[2023-11-27 13:12] LABS: Hepatitis B Surface Antigen Negative (Negative)
[2023-11-27 13:18] LABS: Hepatitis B Core Ab, IgM Negative (Negative)
[2023-11-27 13:30] LABS: Hepatitis B Surface Antibody Negative; Hepatitis C Antibody Negative (Negative)
[2023-11-29 16:48] LABS: Quantiferon Mitogen minus NIL 8.42 IU/mL; Quantiferon NIL 0.16 IU/mL; Quantiferon Plus TB1 minus NIL 0.06 IU/mL (0.00-0.34); Quantiferon Plus TB2 minus NIL 0.05 IU/mL (0.00-0.34); Quantiferon TB Gold Plus Negative (Negative)
== END ==
LOC: REG 11:30
PROVIDERS: ATTENDING PHYSICIAN Physician Assistant Medical; FAMILY PHYSICIAN Family Medicine
DX: Z71.89 Other specified counseling (principal); L57.8 Other skin changes due to chronic exposure to nonionizing radiation; L40.1 Generalized pustular psoriasis; D22.5 Melanocytic nevi of trunk; L81.4 Other melanin hyperpigmentation; L82.1 Other seborrheic keratosis; D18.01 Hemangioma of skin and subcutaneous tissue; D22.39 Melanocytic nevi of other parts of face
CPT/HCPCS: 36415; 80053; 80061; 82248; 85025; 86480; 86705; 86706; 86803; 87340

== ENCOUNTER → 2023-12-01 18:27 | Outpatient (REF) | payer BC, SELFPAY | LOC: WDC 18:27 | PROVIDERS: ATTENDING PHYSICIAN Family Medicine | DX: Z12.31 Encounter for screening mammogram for malignant neoplasm of breast (principal) | CPT/HCPCS: 77063; 77067 ==

== ENCOUNTER 2024-06-10 18:14 | Emergency (ER) | payer BC, SELFPAY ==
[2024-06-10 18:16] VITALS: BP 134/84
[2024-06-10 18:38] LABS: % Basophils 0.4 % (0-2); % Eosinophils 1.6 % (0-6); % Immature Granulocytes 0.2 % (0-0.5); % Lymphocytes 33.8 % (20.5-51.1); % Monocytes 5.4 % (1.7-9.3); % Neutrophils 58.6 % (42.2-75.2); Absolute Eosinophils 0.1 10^3/uL (0-0.7); Absolute Lymphocytes 1.7 10^3/uL (1.2-3.4); Absolute Monocytes 0.3 10^3/uL (0.1-0.6); Hematocrit 38.5 % (37.0-47.0); Hemoglobin 13.6 g/dL (12.0-16.0); Mean Corp Hgb Conc. 35.3 g/dL (33.0-37.0); Mean Corpuscular Hgb 28.4 pg (27.0-31.0); Mean Corpuscular Volume 80.4 fL (81.0-99.0); Mean Platelet Volume 9.6 fL (7.4-10.4); Nucleated Red Blood Cells % 0 %; Platelet Count 312 10^3/uL (130-400); Red Blood Cell Count 4.79 10^6/uL (4.20-5.40); Red Cell Dist. Width 13.3 % (11.5-14.5); White Blood Cell Count 5.2 10^3/uL (4.8-10.8)
[2024-06-10 18:52] LABS: ALT (SGPT) 55 U/L (0-35); AST (SGOT) 97 U/L (14-36); Albumin 4.5 g/dl (3.5-5.0); Alkaline Phosphatase 97 U/L (38-126); Blood Urea Nitrogen 16 mg/dl (7-17); Calcium 9.6 mg/dl (8.4-10.2); Carbon Dioxide 30 mmol/L (22-30); Chloride 102 mmol/L (98-107); Glucose 99 mg/dl (70-99); Potassium 4.2 mmol/L (3.5-5.1); Sodium 144 mmol/L (135-145); Total Bilirubin 0.3 mg/dl (0.2-1.3); Total Protein 7.7 g/dl (6.3-8.2); eGFR > 60.00
[2024-06-10 19:19] LABS: Troponin I < 0.012 ng/ml
[2024-06-10 20:38] VITALS: BMI 23.8
[2024-06-10 20:40] VITALS: BP 140/91
[2024-06-10 20:41] VITALS: BP 140/91
[2024-06-10 21:00] VITALS: BP 156/90
--- NOTE | 2024-06-10 21:54 | ED.GENMED ---
History of Present Illness
General
Chief Complaint: Chest Problem
Time Seen by Provider: 06/10/24 21:35
History of Present Illness
History of Present Illness:
Patient is a 59-year-old woman with history of levothyroxine, prior cholecystectomy presenting to the emergency department with chest pain. Patient states that she went to the [employer] for an exhibit when she went and had a glass of champagne and
some appetizers. She did not feel walking to enjoy the exhibit and then developed midsternal chest pain. It did not radiate. She states that it was pressure. She called her seen that she was feeling unwell and started to walk to her car.
The pain worsened when she got to the car. She had associated shortness of breath and nausea. She then called her son to come pick her up but she felt that she was going to pass out. Symptoms progressed while she was waiting for her son in the
car and workers at the exhibit came and called 911. On their arrival her vitals were unremarkable and they came by private vehicle. Patient states that by the time they got here all symptoms resolved. This is never happened to her before. No
history of exertional chest pain. She does state that her father had an [place] at the age of 30. She has not seen a archeologist. No recent stress test. She denies any hemoptysis long car rides long plane rides travel malignancy or history of blood
clots. She states that this did feel like when she had her gallbladder attack however that has since been removed. No numbness tingling. No weakness.
Past History
Past History
ED Past Medical History: Hypothyroidism and Other (Seasonal allergies)
ED Past Surgical History: Negative Cardiac
Social History
Tobacco: Non-smoker
Alcohol: Occasional
Drug: None
Personal:
Living: with family
Employment: Employed
Family History
Family History: Other (Noncontributory)
Phy Exam
Physical Exam
Physical Exam:
GENERAL: in no acute distress
HEENT: normocephalic, extraocular movements intact, moist oral mucosa
NECK: normal inspection
RESPIRATORY: no respiratory distress, clear to auscultation bilaterally
CARDIOVASCULAR: regular rate and rhythm, 2+ radial pulses bilaterally
ABDOMEN/: soft, non-distended, non-tender to palpation, no rebound or guarding
EXTREMITIES: non-tender, no edema/swelling
NEUROLOGIC: awake and alert, moves all extremities
SKIN: warm
Scores
Heart Score for Chest Pain Patients
STEMI patient?: No
History: Moderately Suspicious
ECG: Normal
Age: >45 - <65 years
Risk Factors: 1 or 2 Risk Factors
Troponin: </= Normal Limit
Heart Score for Chest Pain Patients: 3
Heart Score Risk: 2.5% MACE over next 6 weeks
Course
Orders/Labs/Results
Orders:
Orders
06/10/24 18:16
Electrocardiogram (*1) Urgent
Reason for Study: Chest Pain
EKG- Treatment ONCE
06/10/24 18:31
Complete Blood Count/With Diff Urgent
Comprehensive Metabolic Panel Urgent
Troponin I Urgent
06/10/24 21:36
CR Chest - 2 Views Urgent
Comment:
Reason For Exam: chest pain
06/10/24 21:59
Troponin I Urgent
Abnormal Lab Results
06/10/24
18:31
MCV 80.4 L fL
(81.0-99.0)
AST 97 H U/L
(14-36)
ALT 55 H U/L
(0-35)
06/10/24 18:31
06/10/24 18:31
Vital Signs
Initial and Last Documented VS:
Initial Vital Signs
Temp Pulse Resp BP Pulse Ox
97.8 F 76 16 134/84 100
06/10/24 18:16 06/10/24 18:16 06/10/24 18:16 06/10/24 18:16 06/10/24 18:16
Last Documented Vital Signs
Temp Pulse Resp BP Pulse Ox
97.8 F 91 20 128/79 99
06/10/24 18:16 06/10/24 21:31 06/10/24 21:31 06/10/24 21:58 06/10/24 22:00
MDM/Problems Addressed
Differential Diagnosis Includes:
Patient is a 59-year-old woman with history of hypothyroidism presenting to the emergency department with midsternal chest pain that is now resolved. Vitals are unremarkable and exam is reassuring. Concern for cardiac etiology. Her abdomen is
benign to suggest complications cholecystectomy. Initial EKG obtained per my interpretation with no ST changes. LFTs were slightly elevated. Patient was aware of this and states that this happened to her before. She will follow-up with PCP to
have repeat blood work done. Initial troponin negative. Will obtain delta troponin. Will obtain chest x-ray. If delta troponin is elevated patient will need admission.
*Critical Care Note
Total Time (30-74mins, 75-104mins- exclusive of procedures): Not Applicable
Update Note
Update Note:
On reevaluation patient resting comfortably. Chest x-ray per my interpretation with no acute abnormality. Delta troponin negative. We did discuss that this could be esophageal in etiology. Did recommend Pepcid/Prilosec. Patient will call PCP on
Thursday to get repeat blood work done for her LFTs and I did place patient in for rapid cardiology follow-up given the story and family history. Will discharge at this time. Strict return precautions given.
ED Attending Note
-
Portions of this chart may have been created with voice recognition software.� Occasional wrong word or��sound alike� substitutions may have occurred due to the inherent limitations of voice recognition software.
Discharge Plan
Departure
Patient Disposition: Home (Routine Discharge)
Date of Disposition: 06/10/24
Time of Disposition: 22:40
Patient with high blood pressure during this ER visit?: No
Discharge Problem:
Chest pain
Instructions: Chest Pain DCA Follow Up
Prescriptions:
No Action
levothyroxine 100 mcg Tablet
100 mcg PO DAILY
Referrals:
Rock Vinson, [Family Provider] -
Oskar Thompson MD [Active] -
Activity Restrictions/Additional Instructions:
You were evaluated in the Emergency Department today for chest pain. Your evaluation has shown no signs of medical conditions requiring emergent intervention at this time, however we recommend that you follow up with a archeologist as soon as
possible for further testing as an outpatient.
Please schedule an appointment for follow up with your primary care physician as soon as possible. Please make sure you follow-up to get repeat liver function tests completed.
Return to the Emergency Department if you experience worsening or uncontrolled chest pain, shortness of breath, light headedness, feeling faint, nausea, vomiting, or any other concerning symptoms.
Thank you for choosing us for your care.
Interventions
Interventions:
*Risk Screen - Suicide Last Done: 06/10/24 20:42
*General Assessment Last Done: 06/10/24 20:42
*Neglect/Abuse Screening Last Done: 06/10/24 20:42
ED- Fall Risk Assessment Last Done: 06/10/24 20:43
*ED COVID-19 Vaccine History Last Done: 06/10/24 20:41
*Nursing Disposition Last Done: 06/10/24 22:41
ED- Cardiac Assessment Last Done: 06/10/24 20:43
ED- Pulmonary Assessment Last Done: 06/10/24 20:43
Discharge Date and Time
Print Language: SLOVAK
[2024-06-10 21:58] VITALS: BP 128/79
[2024-06-10 22:31] LABS: Troponin I < 0.012 ng/ml
== END 2024-06-10 22:44 | disposition home or self-care (01) ==
LOC: EMR 18:14
PROVIDERS: Emergency Medicine; EMERGENCY PHYSICIAN Student in an Organized Health Care Education/Training Program; FAMILY PHYSICIAN Family Medicine
DX: R07.89 Other chest pain (principal); E03.9 Hypothyroidism, unspecified; Z90.49 Acquired absence of other specified parts of digestive tract; Z79.899 Other long term (current) drug therapy; Z82.49 Family history of ischemic heart disease and other diseases of the circulatory system
CPT/HCPCS: 99285; 71046; 80053; 84484; 85025; 93005

== ENCOUNTER → 2024-06-23 10:37 | Outpatient (REF) | payer BC, SELFPAY | LOC: RCS 10:37 | PROVIDERS: ATTENDING PHYSICIAN Nuclear Medicine Nuclear Cardiology; FAMILY PHYSICIAN Family Medicine | DX: R07.89 Other chest pain (principal) | CPT/HCPCS: 93017; 93350 ==

== ENCOUNTER → 2024-06-29 14:26 | Outpatient (REF) | payer BC, SELFPAY | LOC: RCS 14:26 | PROVIDERS: ATTENDING PHYSICIAN Nuclear Medicine Nuclear Cardiology; FAMILY PHYSICIAN Internal Medicine Cardiovascular Disease | DX: R07.89 Other chest pain (principal) | CPT/HCPCS: 93306 ==

== ENCOUNTER → 2024-07-28 10:42 | Outpatient (REF) | payer BC, SELFPAY ==
[2024-07-28 11:15] LABS: % Basophils 0.9 % (0-2); % Eosinophils 5.7 % (0-6); % Immature Granulocytes 0.4 % (0-0.5); % Lymphocytes 36.3 % (20.5-51.1); % Monocytes 5.9 % (1.7-9.3); % Neutrophils 50.8 % (42.2-75.2); Absolute Eosinophils 0.3 10^3/uL (0-0.7); Absolute Lymphocytes 1.7 10^3/uL (1.2-3.4); Absolute Monocytes 0.3 10^3/uL (0.1-0.6); Absolute Neutrophils 2.3 10^3/uL (1.4-6.5); Hematocrit 41.2 % (37.0-47.0); Hemoglobin 13.9 g/dL (12.0-16.0); Mean Corp Hgb Conc. 33.7 g/dL (33.0-37.0); Mean Corpuscular Hgb 28.8 pg (27.0-31.0); Mean Corpuscular Volume 85.3 fL (81.0-99.0); Mean Platelet Volume 9.8 fL (7.4-10.4); Nucleated Red Blood Cells % 0 %; Platelet Count 289 10^3/uL (130-400); Red Blood Cell Count 4.83 10^6/uL (4.20-5.40); Red Cell Dist. Width 13.3 % (11.5-14.5); White Blood Cell Count 4.6 10^3/uL (4.8-10.8)
[2024-07-28 11:45] LABS: ALT (SGPT) 24 U/L (0-35); AST (SGOT) 23 U/L (14-36); Albumin 4.4 g/dl (3.5-5.0); Alkaline Phosphatase 84 U/L (38-126); Blood Urea Nitrogen 9 mg/dl (7-17); Calcium 9.2 mg/dl (8.4-10.2); Carbon Dioxide 30 mmol/L (22-30); Chloride 102 mmol/L (98-107); Glucose 90 mg/dl (70-99); HDL Cholesterol 82 mg/dl; LDL Cholesterol, Calculated 139 mg/dl; Potassium 4.4 mmol/L (3.5-5.1); Sodium 138 mmol/L (135-145); Total Bilirubin 0.7 mg/dl (0.2-1.3); Total Cholesterol 238 mg/dl (50-199); Total Protein 7.7 g/dl (6.3-8.2); Triglyceride 85 mg/dl (10-149); Very Low Density Lipoprotein 17 mg/dl (0-30); eGFR > 60.00
[2024-07-28 12:17] LABS: TSH < 0.02 uIU/ml (0.47-4.68)
[2024-07-28 13:27] LABS: Absolute Neutrophils -Man Diff 2.6 10^3/uL (1.4-6.5); Band Neutrophils 1 % (0-3); Eosinophils 2 % (0-6); Lymphocytes 31 % (20-51); Monocytes 10 % (2-9); Segmented Neutrophils 56 % (42-75)
[2024-07-28 13:28] LABS: Normal RBC Morphology Yes; Platelets Checked Yes; Total Cells Counted 100
== END ==
LOC: REG 10:42
PROVIDERS: ATTENDING PHYSICIAN Family Medicine
DX: I10 Essential (primary) hypertension (principal); E78.5 Hyperlipidemia, unspecified; R53.83 Other fatigue; E03.9 Hypothyroidism, unspecified
CPT/HCPCS: 36415; 80053; 80061; 84443; 85025

== ENCOUNTER → 2024-12-06 11:44 | Outpatient (REF) | payer BC, SELFPAY | LOC: WDC 11:44 | PROVIDERS: ATTENDING PHYSICIAN Family Medicine | DX: Z12.31 Encounter for screening mammogram for malignant neoplasm of breast (principal) | CPT/HCPCS: 77063; 77067 ==

== ENCOUNTER 2025-04-17 22:29 | Observation (INO) | payer BC, SELFPAY ==
[2025-04-17 16:37] VITALS: BP 152/101
[2025-04-17 17:07] LABS: Hematocrit 41.8 % (37.0-47.0); Hemoglobin 14.0 g/dL (12.0-16.0); Mean Corp Hgb Conc. 33.5 g/dL (33.0-37.0); Mean Corpuscular Volume 83.6 fL (81.0-99.0); Nucleated Red Blood Cells % 0 %; Platelet Count 272 10^3/uL (130-400); Red Cell Dist. Width 13.2 % (11.5-14.5)
[2025-04-17 17:28] LABS: ALT (SGPT) 56 U/L (0-35); AST (SGOT) 99 U/L (14-36); Albumin 4.2 g/dl (3.5-5.0); Alkaline Phosphatase 88 U/L (38-126); Blood Urea Nitrogen 14 mg/dl (7-17); Calcium 9.2 mg/dl (8.4-10.2); Carbon Dioxide 28 mmol/L (22-30); Chloride 105 mmol/L (98-107); Glucose 104 mg/dl (70-99); Potassium 4.4 mmol/L (3.5-5.1); Sodium 138 mmol/L (135-145); Total Protein 7.5 g/dl (6.3-8.2); eGFR > 60.00
[2025-04-17 17:48] LABS: Lipase 2902 U/L (23-300)
[2025-04-17 18:33] LABS: Troponin I < 0.012 ng/ml
[2025-04-17 19:26] VITALS: BMI 22.7
[2025-04-17] MEDS: NSS 1000 IV (21:18)
[2025-04-17 21:24] VITALS: BP 137/92
--- NOTE | 2025-04-17 21:26 | ED.GENMED ---
History of Present Illness
General
Chief Complaint: Abdominal Symptoms
Time Seen by Provider: 04/17/25 17:51
History of Present Illness
History of Present Illness:
59-year-old female without significant past medical history presenting to the emergency department for intense upper abdominal pain. Patient reports symptoms started prior to arrival, brought her to her knees secondary to intensity of the pain.
Symptoms lasted about 30 minutes until they started to subside. Pain was going into her chest. Reports that she had something similar back in July, at which time she did get her gallbladder removed. Denies any association with food preceding
symptoms. Does note that she had 2 drinks of alcohol yesterday, is not a drinker. Denies present chest pain or difficulty breathing, or any cardiac history. Denies any additional abdominal surgeries. Denies fever. Denies vomiting or additional
acute medical complaints
Past History
Past History
ED Past Medical History: Hypothyroidism and Other (Seasonal allergies)
ED Past Surgical History: Negative Cardiac
Social History
Tobacco: Non-smoker
Alcohol: Occasional
Drug: None
Personal:
Living: with family
Employment: Employed
Family History
Family History: Other (Noncontributory)
Phy Exam
Physical Exam
Physical Exam:
General: Well-appearing, no clinical signs of dehydration, nontoxic and in no acute distress
HEENT: protecting airway
Neck: appears supple
CV: Normal heart rate, regular rhythm
Resp: No accessory muscle use, no increased work of breathing, lungs clear to auscultation bilaterally
Abd: Soft and non-distended, no tenderness to palpation
Extremities: No deformities, no swelling
Neuro: alert, no focal neurologic deficit
: deferred
Rectal: deferred
Psych: Normal affect
Skin: Intact
Course
Orders/Labs/Results
Orders:
Orders
04/17/25 16:29
Electrocardiogram (*1) Urgent
Reason for Study: Abdominal Pain
EKG- Treatment ONCE
04/17/25 16:52
Complete Blood Count/With Diff Urgent
Comprehensive Metabolic Panel Urgent
Lipase Urgent
Troponin I Urgent
04/17/25 18:24
CT Abd/pelvis W Iv Cont Urgent
Comment:
Reason For Exam: elevated lipase, upper abdominal pain
04/17/25 20:31
0.9% Sodium Chloride 1000 ml [Nss] 1,000 ml IV BOLUS
Abnormal Lab Results
04/17/25
16:52
Glucose 104 H mg/dl
(70-99)
AST 99 H U/L
(14-36)
ALT 56 H U/L
(0-35)
Lipase 2902 H* U/L
(23-300)
04/17/25 16:52
04/17/25 16:52
Vital Signs
Initial and Last Documented VS:
Initial Vital Signs
Temp Pulse Resp BP Pulse Ox
98.4 F 66 18 152/101 100
04/17/25 16:37 04/17/25 16:37 04/17/25 16:37 04/17/25 16:37 04/17/25 16:37
Last Documented Vital Signs
Temp Pulse Resp BP Pulse Ox
98.4 F 84 16 137/92 100
04/17/25 16:37 04/17/25 21:24 04/17/25 21:24 04/17/25 21:24 04/17/25 21:24
MDM/Problems Addressed
MDM/Problems Addressed:
59-year-old female presenting to the emergency department for upper abdominal pain radiating to the chest. Vital signs on arrival significant for mild hypertension.
On exam patient is resting comfortably, notes that her pain significantly improved upon arrival. Reassuring cardiac exam, as well as abdominal exam. EKG obtained on arrival, nonischemic. Lower suspicion at this time for ACS. Concern for GERD
versus gastritis versus pancreatitis. Notes prior history of cholecystectomy, and similar symptoms when patient had her gallbladder out. Possible choledocholithiasis. Plan for laboratory analysis.
21:30 - Labs significant for markedly elevated lipase, consistent with pancreatitis. Mild elevation of liver enzymes. CT subsequently obtained, does show some inflammation to the pancreas, consistent with pancreatitis. Unclear source. Patient
does note that she had 2 alcoholic drinks yesterday is not typically a drinker. Lower suspicion for alcohol induced. Gallstone pancreatitis is a consideration, however patient did have her gallbladder removed. Choledocholithiasis remains on the
differential given mild transaminitis. Ultimately given patient's level of lipase and CT findings, feel warrants admission for treatment of acute pancreatitis and possible potential additional imaging. Hemodynamically stable at this time,
receiving IV fluids
*Pulse Oximetry
SaO2: 100
Oxygen Mode of Delivery: Room air
Patient hypoxic: no
*EKG
Interpreted by ED Provider?: Yes
EKG Intrepretation Date: 04/17/25
EKG Intrepretation Time: 21:31
Interpretation: normal
Heart Rate: 61
Rate: normal
Rhythm: sinus
[place]: normal axis
Interval: normal interval
QRS Pattern: normal QRS
Ischemia: no ischemia
*Critical Care Note
Total Time (30-74mins, 75-104mins- exclusive of procedures): Not Applicable
ED Attending Note
-
Portions of this chart may have been created with voice recognition software.� Occasional wrong word or��sound alike� substitutions may have occurred due to the inherent limitations of voice recognition software.
Discharge Plan
Departure
Prescriptions:
No Action
levothyroxine 100 mcg Tablet
100 mcg PO DAILY
Otezla 30 mg Tablet
30 mg PO BID
Referrals:
Rock Vinson DO [Family Provider, [facility]]
Interventions
Interventions:
*Risk Screen - Suicide Last Done: 04/17/25 16:37
*General Assessment Last Done: 04/17/25 16:37
*Neglect/Abuse Screening Last Done: 04/17/25 16:37
*ED- Fall Risk Assessment Last Done: 04/17/25 19:26
OZ-Ttkkhb-Ybxhdfofko Assessment Last Done: 04/17/25 19:27
Discharge Date and Time
Print Language: ROMANIAN
--- NOTE | 2025-04-17 21:58 | HPS.HSE ---
Family Physician
-
Family Physician: Rock Vinson
Chief Complaint
-
abdominal pain
History of Present Illness
59-year-old female past medical history of eczema, hypothyroidism, prior cholecystectomy last year for biliary sludge presenting for severe upper abdominal pain starting today. Pain radiated into the chest. She was brought down on her knees due to
pain. She denies nausea or vomiting. She denies fevers or chills. Denies diarrhea or constipation.
She had similar pain like this last year at which time she was diagnosed with biliary colic and had cholecystectomy performed. She had another episode like this a few months ago after drinking alcohol.
She did drink 2 beers while at a festival yesterday. She almost never drinks alcohol. Denies smoking.
No family history of biliary or pancreatic problems.
Medical History
Past Medical History
Past Medical History: Reports Other ( eczema, hypothyroidism, prior cholecystectomy last year for biliary sludge)
Past Surgical History: Reports None
Social History
Tobacco: Non-smoker
Alcohol: None
Drug: None
Family History
Family History: Not pertinent
Allergies / Home Medications
Allergies reflects when Allergies were last updated in [facility].
Home Medications with original date entered in [facility]
Allergy/Medication List:
Allergies
Allergy/AdvReac Type Severity Reaction Status Date / Time
latex (Latex) Allergy Itching Verified 05/27/19 21:08
Home Medications
levothyroxine 100 mcg tablet 100 mcg PO DAILY Thyroid 09/28/23
apremilast 30 mg tablet (Otezla) 30 mg PO BID 04/17/25
Review of Systems
-
History Source: Patient
A 12 point ROS was completed and negative except as noted: Yes
Constitutional: Reports No Symptoms
EENT: Reports No Symptoms
Respiratory: Reports No Symptoms
Cardiac: Reports No Symptoms
Abdomen/GI: Reports See HPI
: Reports No Symptoms
Musculoskeletal: Reports No Symptoms
Skin: Reports No Symptoms
Neurological: Reports No Symptoms
Endocrine: Reports No Symptoms
Hematologic/Lymphatic: Reports No Symptoms
Psych: Reports No Symptoms
Physical Exam
Vital Signs
Vital Signs
Temp Pulse Resp BP Pulse Ox
98.4 F 84 16 137/92 100
04/17/25 16:37 04/17/25 21:24 04/17/25 21:24 04/17/25 21:24 04/17/25 21:30
Physical Exam
General: Well Developed, Well Nourished and No Apparent Distress
HEENT: NormoCephalic, Moist mucous membranes and Atraumatic
Respiratory: Clear
Cardiac: S1/S2 and Regular Rhythm; No Murmur or Rub
GI: Soft, Non Tender, Non Distended and Normal Bowel Sounds; No Organomegaly
Rectal: Deferred by Provider
Musculoskeletal: No Clubbing, No Cyanosis and No Edema
Skin: No Rash
Neuro: Nonfocal/grossly intact
Laboratory Results
-
04/17/25 16:52
04/17/25 16:52
Laboratory Results
Total Bilirubin 0.6 mg/dl (0.2-1.3) 04/17/25 16:52
AST 99 U/L (14-36) H 04/17/25 16:52
ALT 56 U/L (0-35) H 04/17/25 16:52
Alkaline Phosphatase 88 U/L (38-126) 04/17/25 16:52
Troponin I < 0.012 ng/ml 04/17/25 16:52
Lipase 2902 U/L (23-300) H* 04/17/25 16:52
Data Reviewed
-
Lab Data: Labs Reviewed by me
Old Records: Reviewed
Impression/Plan
-
IMPRESSION:
PLAN:
# Acute pancreatitis unclear if triggered by alcohol use yesterday versus recurrent biliary pancreatitis
# History of biliary colic status post cholecystectomy
-Pain resolved at this time, could be passed stone
-Mild transaminitis
-Lipase 2900
- CT abdomen pelvis shows questionable minimal inferior peripancreatic stranding which represent mild acute pancreatitis, no biliary ductal dilatation
- N.p.o.
- IV fluids with lactated ringers
-Already tolerating BRAT diet, but clears for now
Zofran, Dilaudid
- Check triglycerides
- Monitor LFTs, if continues to worsen may require MRI abdomen
Eczema
- On Otezla which is not a new medication
Hypothyroidism
- Continue levothyroxine
Full code
DVT prophylaxis�heparin
Clear liquids
--- NOTE | 2025-04-17 23:38 | PTCARENOTE ---
Pt received from ED to 418-1. Pt oriented to room and call murray.
[2025-04-17 23:46] VITALS: BP 113/69; BMI 23.9
[2025-04-18] MEDS: LR 1000 IV ×3 (00:04→18:24)
[2025-04-18 00:55] LABS: Triglycerides 97 mg/dl (10-149)
[2025-04-18] MEDS: SYNTHROID 100 MCG PO (05:55)
[2025-04-18 08:16] VITALS: BP 129/83
[2025-04-18 08:18] LABS: Hematocrit 39.4 % (37.0-47.0); Hemoglobin 13.0 g/dL (12.0-16.0); Mean Corp Hgb Conc. 33.0 g/dL (33.0-37.0); Mean Corpuscular Volume 85.3 fL (81.0-99.0); Nucleated Red Blood Cells % 0 %; Platelet Count 259 10^3/uL (130-400); Red Cell Dist. Width 13.2 % (11.5-14.5)
[2025-04-18] MEDS: HEPARIN 5000 UNITS SC (08:55)
[2025-04-18 09:10] LABS: ALT (SGPT) 43 U/L (0-35); AST (SGOT) 36 U/L (14-36); Albumin 3.7 g/dl (3.5-5.0); Alkaline Phosphatase 89 U/L (38-126); Blood Urea Nitrogen 12 mg/dl (7-17); Calcium 8.6 mg/dl (8.4-10.2); Carbon Dioxide 30 mmol/L (22-30); Chloride 108 mmol/L (98-107); Estimated Creatinine Clearance 81 ml/min; Glucose 84 mg/dl (70-99); Potassium 4.7 mmol/L (3.5-5.1); Sodium 140 mmol/L (135-145); Total Protein 6.5 g/dl (6.3-8.2); eGFR > 60.00
--- NOTE | 2025-04-18 09:22 | W.PN.HOSP.TC ---
Today's Communication/Plan
-
See bold
Assessment / Plan
Assessment / Plan
# Acute pancreatitis unclear if triggered by alcohol use yesterday versus recurrent biliary pancreatitis
# History of biliary colic status post cholecystectomy
# Mild transaminitis
-Pain resolved at this time, could be passed stone
-CT abdomen pelvis shows questionable minimal inferior peripancreatic stranding which represent mild acute pancreatitis, no biliary ductal dilatation
-Continue IV fluids, advance diet
-LFTs and lipase downtrending
Eczema
- On Otezla which is not a new medication
Hypothyroidism
- Continue levothyroxine
DVT prophylaxis�SCDs
Full code
Total time spent to see the patient on the floor, examine the patient, review data and lab results, discuss treatment plan with patient, nursing staff around 35 minutes.
Physical Exam
General: No acute distress
HEENT: Normocephalic, Atraumatic, EOMI, MMM
Respiratory: Clear to Auscultation bilaterally
Cardiac: Normal S1/S2, Regular Rate and Rhythm
GI: Soft, Nontender, Nondistended, Normal Bowel Sounds
Extremities: No Clubbing, Cyanosis, or Edema
Neuro: Nonfocal/Grossly Intact
Psych: Calm, Cooperative
Derm: No Visible lesions
Anticipated Discharge: Within 24 hours
Subjective/Interval History
-
Date of Service: April 18, 2025
Patient reports abdominal pain has resolved. Denies nausea, denies vomiting. No fever, no shortness of breath.
Objective Data
-
Labs:
Laboratory Results
04/18/25
07:09
WBC 5.0
Hgb 13.0
Hct 39.4
Plt Count 259
Sodium 140
Potassium 4.7
Chloride 108 H
Carbon Dioxide 30
BUN 12
Creatinine 0.6
Glucose 84
Calcium 8.6
Total Bilirubin 0.4
AST 36
ALT 43 H
Alkaline Phosphatase 89
Vital Signs:
Vital Signs
Temp Pulse Resp BP Pulse Ox
97.7 F 66 16 129/83 99
04/18/25 08:16 04/18/25 08:16 04/18/25 08:16 04/18/25 08:16 04/18/25 08:16
I&O
04/17/25 04/18/25 04/19/25
06:59 06:59 06:59
Intake Total 700 / 700
Balance 700 / 700
--- NOTE | 2025-04-18 10:50 | CM ---
CM reviewed chart, patient seen bedside, initial assessment completed. Patient is a 59-year-old female past medical history of eczema, hypothyroidism, prior cholecystectomy last year for biliary sludge presenting for severe upper abdominal pain.
Patient resides with her spouse in a two level home, two steps to enter. Patient is independent with ADLs/IADLs, denies use of DME, VN/SNF. PCP Rock Vinson, [facility]. Patient believes she has prescription coverage.
Patient denies insecurities at home. OBS form verbally reviewed, refused to sign, provided with copy, placed in chart. CM will continue to follow for all discharge planning needs.
Plan; home no needs anticipated
[2025-04-18 11:46] LABS: Lipase 343 U/L (23-300)
[2025-04-18 15:57] VITALS: BP 147/84
[2025-04-18 23:00] VITALS: BP 115/73
[2025-04-19] MEDS: PEPCID 20 MG IV (01:07)
[2025-04-19] MEDS: NSS (PRESERVATIVE FREE) 8 ML IV (01:08)
[2025-04-19] MEDS: LR 1000 IV (04:36)
[2025-04-19] MEDS: SYNTHROID 100 MCG PO (04:37)
[2025-04-19 07:40] VITALS: BP 128/80
--- NOTE | 2025-04-19 09:13 | W.PN.HOSP.TC ---
Today's Communication/Plan
-
Stable for discharge today
Assessment / Plan
Assessment / Plan
# Acute pancreatitis unclear if triggered by alcohol use yesterday versus recurrent biliary pancreatitis
# History of biliary colic status post cholecystectomy
# Mild transaminitis
-Pain resolved at this time, could be passed stone
-CT abdomen pelvis shows questionable minimal inferior peripancreatic stranding which represent mild acute pancreatitis, no biliary ductal dilatation
-LFTs and lipase almost normalized. Triglycerides normal
-Tolerating a diet without any pain today, medically stable for discharge
-Follow-up with PCP in 1 week
Eczema
- On Otezla which is not a new medication
Hypothyroidism
- Continue levothyroxine
DVT prophylaxis�SCDs
Full code
Physical Exam
General: No acute distress
HEENT: Normocephalic, Atraumatic, EOMI, MMM
Respiratory: Clear to Auscultation bilaterally
Cardiac: Normal S1/S2, Regular Rate and Rhythm
GI: Soft, Nontender, Nondistended, Normal Bowel Sounds
Extremities: No Clubbing, Cyanosis, or Edema
Neuro: Nonfocal/Grossly Intact
Psych: Calm, Cooperative
Derm: No Visible lesions
Anticipated Discharge: Today
Subjective/Interval History
-
Date of Service: April 19, 2025
Patient did have some mild burning substernally after eating yesterday. This resolved with IV Pepcid. She was able to eat breakfast, did not have any recurrence of abdominal pain. No nausea, no vomiting. No fever.
Objective Data
-
Vital Signs:
Vital Signs
Temp Pulse Resp BP Pulse Ox
98 F 59 16 128/80 100
04/19/25 07:40 04/19/25 07:40 04/19/25 07:40 04/19/25 07:40 04/19/25 07:40
I&O
04/18/25 04/19/25 04/20/25
06:59 06:59 06:59
Intake Total 700 / 700 2640 / 2640
Balance 700 / 700 2640 / 2640
--- NOTE | 2025-04-19 09:27 | VATNOTE ---
Pt c/o pain at IV site, states that it is several inches above the IV insertion site in the arm. No swelling noted, mild redness observed. Informed pt that we should change the IV if she is experiencing that much discomfort. Pt adamantly refused
multiple times. Education provided regarding s/s of phlebitis, verbalized understanding. Heat applied to area of discomfort. Will continue to monitor.
--- NOTE | 2025-04-19 10:25 | CM ---
CM reviewed chart, patient seen bedside, reports no needs to CM upon discharge. Plan remains home no needs. CM will continue to follow for all discharge planning needs.
Plan; home no needs anticipated
[2025-04-19] MEDS: TYLENOL 650 MG PO (13:02)
--- NOTE | 2025-04-19 14:44 | W.DCSUMMARY ---
Discharge Summary
Discharge Data
Date of Admission: 04/17/25
Date of Discharge: 04/19/25
-
Pending Results: No
Hospital Course
Discharge diagnosis:
Acute pancreatitis
Mild transaminitis
History biliary colic status postcholecystectomy
Eczema
Hypothyroidism
CT abdomen and pelvis:
Prior cholecystectomy.
Questionable minimal inferior peripancreatic stranding which could represent mild acute pancreatitis. No findings to suggest biliary tract dilatation.
Subcentimeter low-attenuation right renal lesion too small to characterize.
Hospital course:
59-year-old female with a past medical history of eczema, hypothyroidism, and biliary colic status postcholecystectomy was admitted for acute pancreatitis. Her triglycerides levels were normal. It is unclear the cause of her pancreatitis. She was
treated with bowel rest, IV fluids. By the following day, her lipase decreased to 343, down from 2902. Patient also had a transaminitis, that almost normalized as well.
Her abdominal pain resolved. She tolerated a low-fat diet. She is medically stable for discharge. She needs to follow-up with her PCP in 1 week.
Disposition: Home self-care
Discharge planning: Required 32 minutes
Discharge Plan
-
Patient Disposition: Home (Routine Discharge)
Discharge Diagnosis/Procedures: Acute pancreatitis, mildly elevated liver function tests
Condition: Good
Diet: Low Fat and Low Cholesterol
Activity: As tolerated
Driving Restrictions: As prior to admission
Activity Restrictions/Additional Instructions:
Please follow-up with your primary care doctor in 1 week.
Referrals:
Rock Vinson DO [Family Provider, Family Practice] - in one week
Prescriptions:
Continued
levothyroxine 100 mcg Tablet
100 mcg PO DAILY
Otezla 30 mg Tablet
30 mg PO BID
Discharge Orders:
Discharge Patient (As Directed); Ordered 04/19/25
Ordered By: Devendra Do
Discharge Date and Time
Discharge Date/Time: 04/19/25 15:06
Print Language: ICELANDIC
== END 2025-04-19 15:06 | disposition home or self-care (01) ==
LOC: 4 WEST ACU 22:29
PROVIDERS: Emergency Medicine; ADMITTING PHYSICIAN Hospitalist; ATTENDING PHYSICIAN Family Medicine; EMERGENCY PHYSICIAN Student in an Organized Health Care Education/Training Program; FAMILY PHYSICIAN Family Medicine
DX: K85.90 Acute pancreatitis without necrosis or infection, unspecified (principal); R79.89 Other specified abnormal findings of blood chemistry; E03.9 Hypothyroidism, unspecified; L30.9 Dermatitis, unspecified; Z79.890 Hormone replacement therapy; Z79.899 Other long term (current) drug therapy; R74.01 Elevation of levels of liver transaminase levels
CPT/HCPCS: 74177; 80053; 83690; 84478; 84484; 85025; 93005; 96360; 99285; G0378; Q9967

== ENCOUNTER → 2025-05-09 10:39 | Outpatient (REF) | payer BC, SELFPAY ==
[2025-05-09 11:09] LABS: Hematocrit 40.8 % (37.0-47.0); Hemoglobin 13.9 g/dL (12.0-16.0); Mean Corp Hgb Conc. 34.1 g/dL (33.0-37.0); Mean Corpuscular Volume 85.0 fL (81.0-99.0); Nucleated Red Blood Cells % 0 %; Platelet Count 287 10^3/uL (130-400); Red Cell Dist. Width 13.3 % (11.5-14.5)
[2025-05-09 11:53] LABS: ALT (SGPT) 36 U/L (0-35); AST (SGOT) 31 U/L (14-36); Albumin 4.3 g/dl (3.5-5.0); Alkaline Phosphatase 96 U/L (38-126); Amylase 133 U/L (30-110); Blood Urea Nitrogen 14 mg/dl (7-17); Calcium 9.1 mg/dl (8.4-10.2); Carbon Dioxide 29 mmol/L (22-30); Chloride 106 mmol/L (98-107); Glucose 78 mg/dl (70-99); HDL Cholesterol 82 mg/dl; LDL Cholesterol, Calculated 133 mg/dl; Lipase 215 U/L (23-300); Potassium 4.6 mmol/L (3.5-5.1); Sodium 139 mmol/L (135-145); Total Protein 7.9 g/dl (6.3-8.2); Very Low Density Lipoprotein 20 mg/dl (0-30); eGFR > 60.00
[2025-05-09 12:24] LABS: TSH 0.08 uIU/ml (0.47-4.68)
== END ==
LOC: REG 10:39
PROVIDERS: ATTENDING PHYSICIAN Family Medicine
DX: I10 Essential (primary) hypertension (principal); E78.5 Hyperlipidemia, unspecified; E03.9 Hypothyroidism, unspecified; R53.83 Other fatigue
CPT/HCPCS: 36415; 80053; 80061; 82150; 83690; 84443; 85025